=== PATIENT | female | born 1965 | race Hispanic/Latino ===

== ENCOUNTER 2024-07-11 07:28 | Day surgery (SDC) | payer OTHER ==
[~2024-07-11] VITALS: Ht 162.6 cm; Wt 90.7 kg
[2024-07-11] VITALS (11 sets, daily range): BP systolic 114–143; BP diastolic 47–80; PULSE 63–78; RESP 10–17; TEMP 96.6–97.3
[2024-07-11] MEDS ORDERED: AMIT100T2 PO (09:35)
[2024-07-11] MEDS ORDERED: CETI-89 PO (09:35)
[2024-07-11] MEDS ORDERED: FLUO40CA49 PO (09:35)
[2024-07-11] MEDS ORDERED: METO-408 PO (09:35)
[2024-07-11] MEDS ORDERED: PANT40TA PO (09:35)
[2024-07-11] MEDS ORDERED: LISI10TA24 PO (09:35)
[2024-07-11] MEDS ORDERED: MONT-47 PO (09:35)
[2024-07-11] MEDS: 0.9%NACL 1000ML 1,000 ML IV ONE (09:43)
[2024-07-11] MEDS ORDERED: proPOFol 10 MG/ML 20ML VIAL IV ONE ×3 (11:45→12:08)
== END 2024-07-11 13:30 | disposition home or self-care (01) ==
LOC: ENDO 07:28
PROVIDERS: ATTEND Internal Medicine
DX: R14.0 Abdominal distension (gaseous) (principal); D12.5 Benign neoplasm of sigmoid colon; K29.70 Gastritis, unspecified, without bleeding; K31.7 Polyp of stomach and duodenum; K62.89 Other specified diseases of anus and rectum; R12 Heartburn; I10 Essential (primary) hypertension; J45.909 Unspecified asthma, uncomplicated; K21.9 Gastro-esophageal reflux disease without esophagitis; F41.9 Anxiety disorder, unspecified; F32.A Depression, unspecified; Z90.49 Acquired absence of other specified parts of digestive tract; E66.9 Obesity, unspecified; Z79.899 Other long term (current) drug therapy
CPT/HCPCS: 43251; 43239; 45380; 45385; J7030; J2704 ×3; A4620; A4215 ×2; A4223; A4657; A4222; A4221; A4663; A4606; J3490